=== PATIENT | male | born 1980 | race African-American/Black ===

== ENCOUNTER 2023-10-01 19:01 | Emergency (ER) | payer SELFPAY ==
[2023-10-01] MEDS: metroNIDAZOLE 250 MG Tab PO STA (21:34)
[2023-10-01] MEDS: Penicillin G Benzathine 1,200,000 Units/2 ML Syringe IM STA (22:09)
== END 2023-10-01 22:28 | disposition home or self-care (01) ==
LOC: MW.ED 19:01
DX: A51.0 Primary genital syphilis (principal); Z20.2 Contact with and (suspected) exposure to infections with a predominantly sexual mode of transmission; Z88.5 Allergy status to narcotic agent; Z88.6 Allergy status to analgesic agent; Z75.8 Other problems related to medical facilities and other health care
CPT/HCPCS: 96372; 99283; A9270; J0561